=== PATIENT | female | born 1970 | race Caucasian/White ===

== ENCOUNTER 2020-12-08 15:30 | Inpatient (IN) | payer OTHER ==
[~2020-12-08] VITALS: Ht 157.5 cm; Wt 117.9 kg
[~2020-12-08 15:30] MED LIST: ASPIRIN 325MG325 MG PO; BENTYL 10MG CAP10 MG PO; BUSPAR 5MG TABLE5 MG PO; ESTRADIOL TD; FLEXERIL 10 MG10 MG PO; FLEXERIL PO; IBUPROFEN600 MG PO; IBUPROFEN800 MG PO; IMITREX100 MG PO; INDERAL XL80 MG PO; KEFLEX CAP 500500 MG PO; LEXAPRO10 MG PO; LYRICA200 MG PO; NORCO 10-325 T1 EACH PO; NORFLEX 100 MG100 MG PO; PHENERGAN 25 MG25 M1 PO; REMERON15 MG PO; TRAZODONE HCL100 MG PO; VITAMIN C 500500 MG PO; VOLTAREN GEL TD; XYLOCAINE 5% OI35 GM TOP
[2020-12-08 17:32] LABS: HEMOGLOBIN 13.5 gm/dl (12.3-15.3); RED BLOOD COUNT 4.61 M/UL (4.00-5.10)
[2020-12-08] MEDS ORDERED: GLUCOPHAGE 500500 MG PO (21:24)
[2020-12-08] MEDS ORDERED: ATORVASTATIN (21:25)
[2020-12-08] MEDS ORDERED: LISINOPRIL (21:25)
[2020-12-09 05:23] LABS: HEMOGLOBIN 11.8 gm/dl (12.3-15.3); RED BLOOD COUNT 4.03 M/UL (4.00-5.10); WHITE BLOOD COUNT 15.4 K/UL (4.5-11.0)
[2020-12-10 03:40] LABS: HEMOGLOBIN 11.6 gm/dl (12.3-15.3); RED BLOOD COUNT 4.04 M/UL (4.00-5.10); WHITE BLOOD COUNT 12.7 K/UL (4.5-11.0)
[2020-12-10 04:01] LABS: BUN/CREATININE RATIO 8 (0-10)
[2020-12-11 05:06] LABS: HEMOGLOBIN 11.4 gm/dl (12.3-15.3); RED BLOOD COUNT 3.95 M/UL (4.00-5.10)
[2020-12-11 05:09] LABS: WHITE BLOOD COUNT 9.5 K/UL (4.5-11.0)
[2020-12-11 05:25] LABS: BUN/CREATININE RATIO 13 (0-10)
[2020-12-12 05:21] LABS: BUN/CREATININE RATIO 13 (0-10)
[2020-12-12] MEDS ORDERED: AUGMENTIN 875-1 EACH PO (10:58)
== END 2020-12-12 14:10 | disposition home or self-care (01) | DRG 854 ==
LOC: ER1 15:30 → MED SURG 4 20:31 → CDU 20:31 → MED SURG 4 12-09 10:25
PROVIDERS: Internal Medicine Infectious Disease; Physician Assistant Medical; Surgery; ADMIT Internal Medicine
PROC: 05HM33Z Insertion of Infusion Device into Right Internal Jugular Vein, Percutaneous Approach (ICD-10-PCS; 2020-12-09)
PROC: B543ZZA Ultrasonography of Right Jugular Veins, Guidance (ICD-10-PCS; 2020-12-09)
PROC: 0J990ZZ Drainage of Buttock Subcutaneous Tissue and Fascia, Open Approach (ICD-10-PCS; principal; 2020-12-09 08:30)
DX: A41.9 Sepsis, unspecified organism (principal); L02.31 Cutaneous abscess of buttock; Z68.42 Body mass index [BMI] 45.0-49.9, adult; Z20.822 Contact with and (suspected) exposure to COVID-19; E11.9 Type 2 diabetes mellitus without complications; E87.6 Hypokalemia; I10 Essential (primary) hypertension; G43.909 Migraine, unspecified, not intractable, without status migrainosus; E66.01 Morbid (severe) obesity due to excess calories; E78.5 Hyperlipidemia, unspecified; Z85.43 Personal history of malignant neoplasm of ovary; Z90.710 Acquired absence of both cervix and uterus; Z90.722 Acquired absence of ovaries, bilateral; Z90.79 Acquired absence of other genital organ(s); Z82.49 Family history of ischemic heart disease and other diseases of the circulatory system; Z80.9 Family history of malignant neoplasm, unspecified; Z84.89 Family history of other specified conditions; Z79.84 Long term (current) use of oral hypoglycemic drugs; Z79.899 Other long term (current) drug therapy
CPT/HCPCS: 36415; 71045; 80048; 80053; 80202; 82962; 83605; 83735; 85025; 87040; 87070; 87205; 96365; 96366; 96367; 96375; 96376; 99284; C1751; J2001; J2250; J2270; J2405; J2543; J2704; J3010; J3370; J7030; J7070; J7120; Q9967; U0002

== ENCOUNTER → 2021-02-27 | Outpatient (CLI) | payer OTHER ==
[~2021-02-27] MED LIST changes: +ATORVASTATIN; +AUGMENTIN 875-1 EACH PO; +GLUCOPHAGE 500500 MG PO; +LISINOPRIL
== END ==
LOC: KOH-I 15:03
DX: M79.672 Pain in left foot (principal)
CPT/HCPCS: 73630

== ENCOUNTER → 2022-04-19 | Outpatient (CLI) | payer OTHER, MEDICARE | LOC: KOH-I 15:20 | DX: M79.672 Pain in left foot (principal) | CPT/HCPCS: 73630 ==

== ENCOUNTER → 2022-05-01 | Outpatient (CLI) | payer OTHER, MEDICARE | LOC: MRI 08:39 | DX: R22.42 Localized swelling, mass and lump, left lower limb (principal); I10 Essential (primary) hypertension | CPT/HCPCS: 36415; 73720; 82565; 84520; A9577 ==